=== PATIENT | female | born 1980 | race Caucasian/White ===

== ENCOUNTER 2017-02-20 21:23 | Emergency (ER) | payer OTHER ==
[~2017-02-20] VITALS: Ht 162.6 cm; Wt 68.5 kg
[2017-02-20 21:25] VITALS: Ht 162.6 cm; Wt 68.5 kg
[2017-02-21] MEDS ORDERED: KETOROLAC 15 MG INJ IM STA (00:30)
[2017-02-21 01:14] LABS: URINE BLOOD (Dip) POC Trace-intact (NEGATIVE)
--- NOTE | 2017-02-21 02:09 | ERD ---
ER Documentation Chief Complaint Date/Time DATE: 02/21/17 TIME: 02:02 Chief Complaint RLQ abd pain raditing to back x days HPI This pleasant 36-year-old female presented to the emergency department today for complaints of right lower abdominal pain, right lower abdominal pain, dizziness without nausea, vomiting, or diarrhea. Patient reports pain is sharp , and intermittent. Patient states she was seen yesterday at an urgent care diagnosed with a urinary tract infection and started on Macrobid. Patient has taken a total of 3 tablets reports. Patient reports that medication has started helping with some of the symptoms. Abdominal pain has continued. ROS All systems reviewed and are negative except as per history of present illness. Allergies Allergies: Coded Allergies: No Known Allergy (Unverified , 02/20/17) PMhx/Soc History of Surgery: Yes (appy) Anesthesia Reaction: No Hx Alcohol Use: No Hx Substance Use: No Hx Tobacco Use: No Smoking Status: Unknown if ever smoked Physical Exam Vitals Vital Signs Date Time Temp Pulse Resp B/P Pulse Ox O2 Delivery O2 Flow Rate FiO2 02/20/17 21:25 98.8 82 20 132/68 100 Physical Exam Const: No acute distress Head: Atraumatic Eyes: Normal Conjunctiva ENT: Normal External Ears, Nose and Mouth. Mucous membranes moist Neck: Full range of motion..~ No meningismus. Resp: Clear to auscultation bilaterally Cardio: Regular rate and rhythm, no murmurs Abd: Abdomen symmetric, non-tympanic, periumbilical and pelvic tenderness. No observed right lower quadrant or right upper quadrant tenderness to palpation. No CVA tenderness Skin: No petechiae or rashes Back: No midline or flank tenderness Ext: Neur: Awake and alert Psych: Normal Mood and Affect Results 24 hrs Laboratory Tests Test 02/21/17 01:15 Bedside Urine pH (LAB) 6.0 Bedside Urine Protein (LAB) Negative Bedside Urine Glucose (UA) Negative Bedside Urine Ketones (LAB) Negative Bedside Urine Blood Trace-intact Bedside Urine Nitrite (LAB) Negative Bedside Urine Leukocyte Esterase (L 1+ Current Medications Medications (Trade) Dose Ordered Sig/Shira Route PRN Reason Start Time Stop Time Status Last Admin Dose Admin Ketorolac Tromethamine (Toradol) 15 mg ONCE STAT IM 02/21/17 00:30 02/21/17 00:32 DC 02/21/17 01:17 Procedures/MDM This pleasant 36-year-old female presents to the emergency department today with complaint of abdominal pain, the pain is sharp, right upper and lower quadrant, patient reports dizziness, denies nausea, vomiting, diarrhea. Patient reports that she was seen in urgent care yesterday diagnosed with a urinary tract infection and started on Macrobid patient has taken 3 pills out of the 7 day course of medication. Physical exam findings do not support appendicitis, abdominal pain is highly likely related to pre-existing diagnosis of urinary tract infection. Patient will start on Pyridium for pain, continue Macrobid as prescribed, short course of Ione. Return to emergency department for fever, nausea, vomiting, burning with urination after antibiotic course is complete or continued abdominal pain on current treatment. I feel the patient is stable for discharge and outpatient management by primary care physician. I have discussed results, examination findings, the treatment plan with the patient and family present prior to discharge. Indications for emergent reevaluation, side effects of medication were also discussed. All questions were answered. Patient verbalizes understanding and agrees with plan of care. Departure Diagnosis: Primary Impression: Urinary tract infection Urinary tract infection type: site unspecified Hematuria presence: without hematuria Qualified Code: N39.0 - Urinary tract infection without hematuria, site unspecified Patient Instructions: Understanding Urinary Tract Infections (UTIs) Additional Instructions: Thank you for for coming to [facility] for your care today. Please ask your nurse or provider if you have questions about your care today and do not leave until all your questions have been answered. Please use any medications given as directed and follow-up with your doctor (or the doctor you were referred to) in the next 2-3 days. If you do not have a primary care doctor [place] [facility] [place] [place] You may also use motrin and tylenol as needed for fever and/or pain unless instructed otherwise by your provider or nurse. Indications for more urgent follow-up have been discussed, but you may return to the Emergency Department at ANY time for any worrisome or worsening symptoms. If you have abdominal pain, please know that no test or exam you received is perfect and you should follow up within 8 hours for continued pain. If you had any imaging studies today, such as an X-Ray or CT Scan, these studies will be reviewed later by a radiologist. You will be called if there are important findings that were not identified today, so make sure the contact information you provided at registration is correct. If you received any narcotic pain control medicine today, such as Vicodin, Morphine or Dilaudid, your coordination and judgment may be affected for a number of hours. Please do not drive or operate heavy machinery, and you may want someone to assist you at home. If you were given a prescription for narcotic medication, be aware that it is very addictive- use sparingly and only if necessary. ANDREI MEDINA February 21, 2017 02:09
[2017-02-21] MEDS ORDERED: PHEN-538 PO (02:10)
[2017-02-21] MEDS ORDERED: HYDR-906 PO (02:11)
== END 2017-02-21 02:27 | disposition home or self-care (01) ==
LOC: FTE 21:23
DX: N39.0 Urinary tract infection, site not specified (principal); R10.2 Pelvic and perineal pain
CPT/HCPCS: 81003; 96372; J1885; Z7502